=== PATIENT | male | born 2000 | race Caucasian/White ===

== ENCOUNTER 2021-10-24 18:17 | Emergency (ER) | payer MEDICAID, OTHER ==
[2021-10-24 18:24] VITALS: BP 154/77
[2021-10-24] MEDS ORDERED: DOXYCYCLINE 100 MG TABLET PO STA (19:52)
--- NOTE | 2021-10-24 19:55 | ED Physician Documentation ---
History of Present Illness - Stated complaint Stated Complaint: LUMP ON FACE - Chief complaint Chief Complaint: Wound - Additonal information Additional information: 21-year-old male who has a history of autism spectrum disorder presents [facility] en[facility] department for evaluation of left-sided facial swelling, redness and induration. Symptoms began earlier this afternoon. He did have a focal pimple that has since ruptured. Patient appears to be picking at his skin. No fevers. Does not have a history of abscess and cellulitis many years ago. Review of Systems Constitutional: denies: Fever Nose: reports: Reviewed and negative Cardiac: reports: Reviewed and negative Respiratory: reports: Reviewed and negative Skin: reports: Lesions PD PAST MEDICAL HISTORY - Past Surgical History Past Surgical History: No - Present Medications Home Medications: Ambulatory Orders Medication Instructions Recorded Confirmed Mupirocin 2% Oint [Bactroban 2% 1 applic TOP BID #15 g 06/29/14 Oint] Sulfamethoxazole/Trimethoprim 1 each PO BID #14 tablet 06/29/14 [Bactrim Ds Tablet] Doxycycline Hyclate 100 mg PO BID #14 cap 10/24/21 - Allergies Allergies/Adverse Reactions: Allergies Allergy/AdvReac Type Severity Reaction Status Date / Time freshly cut grass Allergy Hives Uncoded 10/24/21 18:24 - Social History Does the pt smoke?: No Smoking Status: Never smoker Does the pt drink ETOH?: No Does the pt have substance abuse?: No - Immunizations Immunizations are current?: Yes - POLST Patient has POLST: No PD ED PE NORMAL - General General: Alert and oriented X 3, No acute distress, Well developed/nourished - HEENT HEENT: Atraumatic, Ears normal, Moist mucous membranes, Pharynx benign, Dentition benign, Other - Neck Neck: Supple, no meningeal sign, No adenopathy - Cardiac Cardiac: RRR, No murmur - Derm Derm: Other (4 cm circumferential area of erythema and induration on the left lower cheek near the jawline. There is a centralized pimple that appears to have ruptured. Limited bedside ultrasound did not reveal a collection of fluid or abscess formation.) Results - Vitals Vitals: Vital Signs - 24 hr 10/24/21 18:23 Temperature 36.7 C Heart Rate 79 Respiratory 16 Rate Blood Pressure 154/77 H O2 Saturation 97 Oxygen O2 Source Room air PD MEDICAL DECISION MAKING - ED course Complexity details: considered differential, d/w family ED course: 21-year-old male who has autism spectrum disorder presents emergency department for evaluation of a cellulitis in the left lower side of his face and cheek that began a few hours ago. Is at the site where a pimple appears to have ruptured. Limited bedside ultrasound did not reveal a fluid collection or abscess development. We will start the patient on doxycycline which has good strep and MRSA coverage. Will recommend warm compress. Clinically exam does not consistent with a dental infection. Emergent return precautions were discussed for worsening symptoms. Departure - Departure Disposition: Home, Self Care Clinical Impression: Facial cellulitis Condition: Stable Record reviewed to determine appropriate education?: Yes Prescriptions: Doxycycline Hyclate 100 mg PO BID #14 cap Comments: Sim was seen today in the emergency department for swelling, redness and pain on the left side of his face and cheek. It looks like he has developed an early cellulitis or bacterial skin infection. The limited ultrasound completed at the bedside did not reveal a pocket of fluid or abscess development Please fill the prescription for the doxycycline to begin taking twice daily for the next week. Your first dose was given tonight in the emergency department. In general I will try and discourage him from picking at the face. A warm compress applied to the face for 10 minutes 3 times a day may also be helpful. With the antibiotics I would expect improved redness and swelling over the next 48 to 72 hours. If worsening please return to the ER for repeat evaluation. Prescriptions were sent electronically to the [facility].
== END 2021-10-24 20:03 | disposition home or self-care (01) ==
LOC: ED 18:17
DX: L03.211 Cellulitis of face (principal); F84.0 Autistic disorder
CPT/HCPCS: 99282; 99283; A9270